=== PATIENT | female | born 1955 | race Caucasian/White ===

== ENCOUNTER 2017-05-04 19:16 | Emergency (ER) | payer OTHER ==
[~2017-05-04] VITALS: Ht 167.6 cm; Wt 127.0 kg
[2017-05-04 19:31] VITALS: BP 151/82
== END 2017-05-05 00:15 | disposition left against medical advice (07) ==
LOC: EME 19:16
DX: R21 Rash and other nonspecific skin eruption (principal); Z53.21 Procedure and treatment not carried out due to patient leaving prior to being seen by health care provider